=== PATIENT | male | born 1955 | race Caucasian/White ===

== ENCOUNTER 2018-09-11 21:42 | Emergency (ER) | payer MEDICAID ==
[~2018-09-11] VITALS: Ht 160 cm; Wt 78.0 kg
[~2018-09-11 21:42] MED LIST: AMLO10TA80 PO; ASCO500C6 PO; Chlorpromazine PO; DIPH25CA83 PO; DOCU-150 PO; FERR-63 PO; MECL-109 PO; NAPR-681 PO; OMEP20TA2 PO; ONDA4SOL2 PO; PANT40TA4 PO; SUCR1ORA PO
[2018-09-11 22:35] VITALS: BP 119/81
== END 2018-09-11 23:15 | disposition left against medical advice (07) ==
LOC: ER 21:45
DX: Z53.21 Procedure and treatment not carried out due to patient leaving prior to being seen by health care provider (principal)